=== PATIENT | female | born 1990 | race Two or more races ===

== ENCOUNTER 2022-04-09 09:46 | Emergency (ER) | payer BC ==
[2022-04-09] MEDS ORDERED: Sodium Chloride 0.9% 10 ML Syringe FLUSH PRN (10:38)
[2022-04-09] MEDS ORDERED: Acetaminophen 500 MG Tab PO ONE (10:38)
[2022-04-09] MEDS ORDERED: Sodium Chloride 0.9% 1,000 ML IV ONE (10:38)
[2022-04-09] MEDS ORDERED: Ketorolac 30 MG/ML SDV IVPUSH ONE (12:06)
[2022-04-11 13:12] LABS: CHLAMYDIA TRACHOMATIS, NAA Negative (Negative); NEISSERIA GONORRHOEAE, NAA Negative (Negative)
== END 2022-04-09 15:05 | disposition home or self-care (01) ==
LOC: JP.ED 09:46
DX: N72 Inflammatory disease of cervix uteri (principal); N73.9 Female pelvic inflammatory disease, unspecified; Z79.899 Other long term (current) drug therapy; Z86.16 Personal history of COVID-19; Z20.822 Contact with and (suspected) exposure to COVID-19
CPT/HCPCS: 36415; 76830; 76830-26; 76856; 76856-26; 80048; 81001; 81025; 83605; 85025; 85651; 86140; 87086; 87210; 87491; 87591; 96361; 96365; 96375; 99284; 99284-25; A9270-GY; J0696; J1885; J3490; J7030; U0002

== ENCOUNTER 2023-03-26 15:33 | Emergency (ER) | payer BC ==
[2023-03-26] MEDS ORDERED: diphenhydrAMINE 25 MG Cap PO ONE (16:53)
[2023-03-26 16:58] LABS: BASOPHILS ABSOLUTE AUTO 0.05 K/uL (0.00-0.10); BASOPHILS PERCENT AUTO 0.4 % (0.1-1.3); EOSINOPHILS ABSOLUTE AUTO 0.69 K/uL (0.00-0.40); EOSINOPHILS PERCENT AUTO 5.6 % (0.0-5.4); HEMATOCRIT 38.1 % (34.3-46.0); HEMOGLOBIN 13.7 g/dL (11.2-15.5); IMMATURE GRAN ABSOLUTE AUTO 0.04 K/uL (0.00-0.23); IMMATURE GRAN PERCENT AUTO 0.3 % (0.0-0.7); LYMPHOCYTES ABSOLUTE AUTO 2.55 K/uL (0.8-3.3); LYMPHOCYTES PERCENT AUTO 20.9 % (11.4-47.7); MEAN CORPUSCULAR HEMOGLOBIN 29.6 pg (31.6-35.5); MEAN CORPUSCULAR VOLUME 82.3 fL (81.4-99.0); MONOCYTES ABSOLUTE AUTO 0.99 K/uL (0.20-0.90); MONOCYTES PERCENT AUTO 8.1 % (3.3-12.6); NEUTROPHILS ABSOLUTE AUTO 7.91 K/uL (1.0-7.6); NEUTROPHILS PERCENT AUTO 64.7 % (40.0-78.1); PLATELET COUNT,PLT 257 K/uL (130-375); RED BLOOD CELL COUNT 4.63 M/uL (3.77-5.24); WHITE BLOOD CELL COUNT,WBC 12.2 K/uL (3.2-11.0)
[2023-03-26 17:14] LABS: CALCIUM 8.7 mg/dL (8.5-10.1); CREATININE 0.8 mg/dL (0.6-1.0); EST CRCL DRUG DOSING (CG) 78.37 mL/min; POTASSIUM,K 3.1 mmol/L (3.6-5.2)
[2023-03-26 17:15] LABS: ANION GAP 14.1 mmol/L (5.0-14.0)
== END 2023-03-26 19:38 | disposition home or self-care (01) ==
LOC: JP.ED 15:33
DX: T78.40XA Allergy, unspecified, initial encounter (principal); Z86.16 Personal history of COVID-19
CPT/HCPCS: 36415; 80048; 85025; 99283; A9270